=== PATIENT | male | born 1995 | race Caucasian/White ===

== ENCOUNTER 2016-07-27 14:58 | Inpatient (IN) | payer BC ==
[~2016-07-27] VITALS: Ht 172.7 cm; Wt 66.6 kg
[2016-07-27] MEDS ORDERED: ONDANSETRON INJ 2 MG/ML 2 ML VIAL IV PRN (15:30)
[2016-07-27] MEDS ORDERED: MAGNESIUM HYDROXIDE SUSP 30 ML UDC PO PRN (15:30)
[2016-07-27 15:59] VITALS: BP 121/82; PULSE 86; TEMP 36.7; O2SAT 98
[2016-07-27] MEDS ORDERED: PATIENT'S ALLERGY INFO NEEDS ENTERED SCH (16:15)
--- NOTE | 2016-07-27 16:33 | DIAGNOSTIC IMAGING REPORT ---
CHEST 2 VIEWS ROUTINE CLINICAL HISTORY: eval pneumonia COMPARISON STUDY: No previous studies for comparison. FINDINGS: The heart is normal in size. There are bibasal airspace opacities consistent with a bilateral pneumonia. There are small bilateral pleural effusions.[ IMPRESSION: Bilateral lower lobe airspace opacities, consistent with pneumonia. Small bilateral pleural effusions. Electronically signed by: Fernandez Thompson M.D. 07/27/2016 4:31 PM Dictated Date/Time: 07/27/2016 4:30 PM
[2016-07-27] MEDS: SODIUM CHLORIDE 0.9% 1000ML 1,000 ML IV SCH (17:04)
[2016-07-27 17:09] LABS: BASO % 0.2 %; BASO ABS # 0.02 K/uL (0-0.2); COMPLETE YES; EOS % 0.3 %; HEMATOCRIT 39.3 % (42-52); IG% 0.7 %; LYMPH % 10.2 %; LYMPH ABS # 1.09 K/uL (1.2-3.4); MEAN CELL VOLUME 87.9 fL (80-100); MEAN CORPUSCULAR HEMOGLOBIN 30.6 pg (25-34); MEAN CORPUSCULAR HGB CONC 34.9 g/dl (32-36); MEAN PLATELET VOLUME 10.3 fL (7.4-10.4); MONO % 11.4 %; NEUT % 77.2 %; PLATELET COUNT 179 K/uL (130-400); RED BLOOD COUNT 4.47 M/uL (4.7-6.1); WHITE BLOOD COUNT 10.72 K/uL (4.8-10.8)
[2016-07-27 17:24] VITALS: O2SAT 96; Ht 172.7 cm; Wt 66.6 kg
--- NOTE | 2016-07-27 17:33 | HISTORY & PHYSICAL EXAMINATION ---
DATE OF ADMISSION: 07/27/2016 CHIEF COMPLAINT: This is direct admission from [facility] for pneumonia, failing outpatient treatment. HISTORY OF PRESENT ILLNESS: Mr. Landeros is a 21-year-old male who is a college student, typically healthy, only taking some nasal inhalers for allergic rhinitis. The patient has had a 2-week history of a cough which initially just thought it was allergies. The patient sought care with [facility] this week. He was prescribed azithromycin. He took 1 day's worth of it. He reported back for a recheck. Upon recheck at [facility], he had a temperature of 39.3. He was coughing. He was dyspneic, although not hypoxic. He is called and recommended for admission for failing outpatient treatment. PAST MEDICAL HISTORY: Only for allergic rhinitis. He has had no surgeries. He has had no overnight hospital stay. MEDICATIONS: Only Flonase and an additional nasal inhaler, which he cannot recall. SOCIAL HISTORY: The patient drinks alcohol as a typical college student. He smoked marijuana approximately 3-4 weeks ago but had had episode of at least 2 weeks for he was fine since that time. He was visiting his family in [place] and denies any exposure to possible etiologies for canyon fever. FAMILY HISTORY: Unremarkable. Everyone is healthy. REVIEW OF SYSTEMS: Ten systems were reviewed and are negative including no evidence of diarrhea, urinary changes. He has a cough productive of green-yellow sputum and he has been feverish and chilled at home. PHYSICAL EXAMINATION: VITAL SIGNS: Currently his temperature is 37, pulse 71, respirations 16, BP 116/65. GENERAL: He is thin. He is in mild distress. HEENT: PERRL, EOMI. Oropharynx with dry mucous membranes. NECK: Without lymphadenopathy. Trachea is midline. HEART: Regular without murmurs. LUNGS: Have bibasilar rhonchi which exacerbate coughing with deep breaths. ABDOMEN: Normoactive bowel sounds, soft, nontender, nondistended, no organomegaly, no abdominal bruits. EXTREMITIES: Without cyanosis, clubbing or edema. NEUROLOGIC: Awake, alert and appropriate. Cranial nerves II-XII are intact. Equal symmetrical strength and sensation. We have no chest x-ray on file nor do we have labs right now. ASSESSMENT: A 21-year-old male, failing outpatient therapy for pneumonia. PLAN: The patient will be admitted to our facility. He will be placed on levofloxacin daily. Chest x-ray and laboratories are pending as well as blood cultures. He will be hydrated with normal saline. Maintaining his Flomax. DVT prevention is early ambulation.
[2016-07-27 17:39] LABS: BUN/CREATININE RATIO 6.7 (10-20); CALCIUM 8.7 mg/dl (8.5-10.1); CREATININE 1.1 mg/dl (0.60-1.40); POTASSIUM 3.8 mmol/L (3.5-5.1)
[2016-07-27] MEDS: LEVOFLOXACIN / D5W 750 MG in PREMIXED IN D5W 150 ML IV SCH (18:40)
[2016-07-27] MEDS ORDERED: PNEUMOCOCCAL ADMINISTRATION CHARGE ONE (21:00)
[2016-07-27] MEDS ORDERED: PNEUMOCOCCAL POLYSACCHARIDES 25 MCG/0.5 ML VIAL/SYR IM. ONE (21:00)
[2016-07-27] MEDS ORDERED: BENZONATATE 100MG CAP PO PRN (21:45)
[2016-07-27 23:17] VITALS: BP 120/77; PULSE 76; TEMP 37.2; O2SAT 99
[2016-07-28] MEDS ORDERED: NURSING VERBAL MED ORDER ONE
[2016-07-28] MEDS ORDERED: HYDROCODONE/HOMATROPINE SYRUP 5MG/1.5MG 5ML UDP ONE (00:08)
[2016-07-28] MEDS: HYDROCODONE/HOMATROPINE SYRUP 5MG/1.5MG 5ML UDP PO PRN ×5 (00:37→20:22)
[2016-07-28] MEDS: SODIUM CHLORIDE 0.9% 1000ML 1,000 ML IV SCH ×2 (02:25→11:59)
[2016-07-28 08:07] VITALS: BP 125/76; PULSE 88; TEMP 36.9; O2SAT 96
[2016-07-28 08:07] LABS: HEMATOCRIT 37.1 % (42-52); MEAN CORPUSCULAR HEMOGLOBIN 31.4 pg (25-34); MEAN CORPUSCULAR HGB CONC 35.3 g/dl (32-36); MEAN PLATELET VOLUME 10.1 fL (7.4-10.4); PLATELET COUNT 161 K/uL (130-400); RED BLOOD COUNT 4.17 M/uL (4.7-6.1); WHITE BLOOD COUNT 10.23 K/uL (4.8-10.8)
[2016-07-28 08:41] LABS: BUN/CREATININE RATIO 8.7 (10-20); CALCIUM 8.3 mg/dl (8.5-10.1); POTASSIUM 3.8 mmol/L (3.5-5.1)
[2016-07-28] MEDS: FLUTICASONE PROPIONATE NA SPR 16 GM BTL SCH (10:38)
[2016-07-28] MEDS: ACETAMINOPHEN 325 MG TAB PO PRN ×2 (13:01→19:25)
--- NOTE | 2016-07-28 14:41 | Hospitalist Progress Note ---
Hospitalist Progress Note Date of Service Jul 28, 2016. Subjective feeling better but still with significant cough Constitutional: No fever Respiratory: + cough, No shortness of breath Cardiovascular: No chest pain Objective Vital Signs Date Time Temp Pulse Resp B/P Pulse Ox O2 Delivery O2 Flow Rate FiO2 07/28/16 08:07 36.9 88 18 125/76 96 Room Air 07/28/16 08:00 Room Air 07/28/16 00:01 Room Air 07/27/16 23:17 37.2 76 18 120/77 99 Room Air 07/27/16 20:00 Room Air 07/27/16 17:24 96 Room Air 07/27/16 15:59 36.7 86 20 121/82 98 Room Air Physical Exam General Appearance: no apparent distress Respiratory/Chest: no respiratory distress, + pertinent finding (coarse sounds ) Cardiovascular: regular rate, rhythm Neurologic/Psychiatric: alert, oriented x 3 Skin: warm/dry Laboratory Results Last 24 Hours Test 07/27/16 16:46 07/28/16 07:53 White Blood Count 10.72 K/uL 10.23 K/uL Red Blood Count 4.47 M/uL 4.17 M/uL Hemoglobin 13.7 g/dL 13.1 g/dL Hematocrit 39.3 % 37.1 % Mean Corpuscular Volume 87.9 fL 89.0 fL Mean Corpuscular Hemoglobin 30.6 pg 31.4 pg Mean Corpuscular Hemoglobin Concent 34.9 g/dl 35.3 g/dl Platelet Count 179 K/uL 161 K/uL Mean Platelet Volume 10.3 fL 10.1 fL Neutrophils (%) (Auto) 77.2 % Lymphocytes (%) (Auto) 10.2 % Monocytes (%) (Auto) 11.4 % Eosinophils (%) (Auto) 0.3 % Basophils (%) (Auto) 0.2 % Neutrophils # (Auto) 8.28 K/uL Lymphocytes # (Auto) 1.09 K/uL Monocytes # (Auto) 1.22 K/uL Eosinophils # (Auto) 0.03 K/uL Basophils # (Auto) 0.02 K/uL RDW Standard Deviation 40.9 fL 41.5 fL RDW Coefficient of Variation 12.7 % 12.8 % Immature Granulocyte % (Auto) 0.7 % Immature Granulocyte # (Auto) 0.08 K/uL Sodium Level 141 mmol/L 139 mmol/L Potassium Level 3.8 mmol/L 3.8 mmol/L Chloride Level 106 mmol/L 107 mmol/L Carbon Dioxide Level 28 mmol/L 24 mmol/L Anion Gap 7.0 mmol/L 8.0 mmol/L Blood Urea Nitrogen 7 mg/dl 9 mg/dl Creatinine 1.10 mg/dl 1.00 mg/dl Est Creatinine Clear Calc Drug Dose 100.1 ml/min 110.1 ml/min Estimated GFR () 110.6 124.1 Estimated GFR (Non- 95.5 107.1 BUN/Creatinine Ratio 6.7 8.7 Random Glucose 102 mg/dl 97 mg/dl Calcium Level 8.7 mg/dl 8.3 mg/dl Assessment and Plan 21-year-old male, failing outpatient therapy for pneumonia. CAP - Continue IV levaquin, hycodan, blood cultures pending. Allergic rhinitis - continue flonase early ambulation anticipate d/c home in am
[2016-07-28 15:59] VITALS: BP 109/61; PULSE 84; TEMP 37.1; O2SAT 95
[2016-07-28] MEDS: LEVOFLOXACIN / D5W 750 MG in PREMIXED IN D5W 150 ML IV SCH (18:04)
[2016-07-28 19:15] VITALS: TEMP 38.2
[2016-07-28 23:02] VITALS: BP 115/70; PULSE 72; TEMP 37.1; O2SAT 96
[2016-07-29] MEDS: HYDROCODONE/HOMATROPINE SYRUP 5MG/1.5MG 5ML UDP PO PRN ×6 (00:18→21:42)
[2016-07-29] MEDS: SODIUM CHLORIDE 0.9% 1000ML 1,000 ML IV SCH ×3 (00:19→18:44)
[2016-07-29 07:45] VITALS: BP 105/65; PULSE 94; TEMP 37.6; O2SAT 96
[2016-07-29] MEDS: FLUTICASONE PROPIONATE NA SPR 16 GM BTL SCH (08:02)
[2016-07-29] MEDS: ACETAMINOPHEN 325 MG TAB PO PRN ×2 (08:03→15:30)
[2016-07-29 10:28] LABS: BUN/CREATININE RATIO 6.8 (10-20); CALCIUM 8.8 mg/dl (8.5-10.1); POTASSIUM 3.7 mmol/L (3.5-5.1)
--- NOTE | 2016-07-29 13:00 | DIAGNOSTIC IMAGING REPORT ---
CHEST 2 VIEWS ROUTINE CLINICAL HISTORY: Follow-up pneumonia. COMPARISON STUDY: Chest radiograph July 27, 2016. FINDINGS: Bibasilar consolidation has progressed since exam of July 27, 2016. There are suspected small bilateral pleural effusions. There is no pneumothorax. Cardiac size is normal. Mediastinal contours are normal. There is no evidence of pulmonary edema. IMPRESSION: 1. Progression of bilateral lower lobe consolidation suggestive of pneumonia. 2. Small bilateral pleural effusions. Electronically signed by: Segun Alexis M.D. 07/29/2016 12:58 PM Dictated Date/Time: 07/29/2016 12:57 PM
[2016-07-29 13:40] VITALS: TEMP 37.6
[2016-07-29 15:34] VITALS: BP 125/69; PULSE 79; TEMP 37.7; O2SAT 96
[2016-07-29 16:57] VITALS: TEMP 36.7
[2016-07-29] MEDS: LEVOFLOXACIN / D5W 750 MG in PREMIXED IN D5W 150 ML IV SCH (18:00)
--- NOTE | 2016-07-29 21:14 | Hospitalist Progress Note ---
Hospitalist Progress Note Date of Service Jul 29, 2016. Subjective cough worse since am also having fevers now. no shortness of breath. Cardiovascular: + chest pain (hurts on coughing) Abdomen: No pain Objective Vital Signs Date Time Temp Pulse Resp B/P Pulse Ox O2 Delivery O2 Flow Rate FiO2 07/29/16 16:57 36.7 07/29/16 15:34 37.7 79 18 125/69 96 07/29/16 15:30 Room Air 07/29/16 13:40 37.6 07/29/16 08:00 Room Air 07/29/16 07:45 37.6 94 16 105/65 96 Room Air 07/29/16 00:46 Room Air 07/28/16 23:02 37.1 72 18 115/70 96 Room Air Physical Exam General Appearance: no apparent distress Respiratory/Chest: no respiratory distress, + decreased breath sounds (base with coarse sounds) Cardiovascular: regular rate, rhythm Abdomen: normal bowel sounds, non tender, soft Neurologic/Psychiatric: alert, oriented x 3 Laboratory Results Last 24 Hours Test 07/29/16 09:27 Sodium Level 139 mmol/L Potassium Level 3.7 mmol/L Chloride Level 103 mmol/L Carbon Dioxide Level 25 mmol/L Anion Gap 11.0 mmol/L Blood Urea Nitrogen 7 mg/dl Creatinine 1.00 mg/dl Est Creatinine Clear Calc Drug Dose 110.1 ml/min Estimated GFR () 124.1 Estimated GFR (Non- 107.1 BUN/Creatinine Ratio 6.8 Random Glucose 88 mg/dl Calcium Level 8.8 mg/dl Assessment and Plan 21-year-old male, failing outpatient therapy for pneumonia. CAP - Continue IV levaquin, hycodan, blood cultures neg. since cough worse- check CXR - noted worse infiltrate. consulted ID. Allergic rhinitis - continue flonase early ambulation
[2016-07-29 23:10] VITALS: BP 114/73; PULSE 83; TEMP 37.2; O2SAT 96
[2016-07-30] VITALS: O2SAT 96
[2016-07-30] MEDS: HYDROCODONE/HOMATROPINE SYRUP 5MG/1.5MG 5ML UDP PO PRN ×6 (01:54→22:15)
[2016-07-30] MEDS: SODIUM CHLORIDE 0.9% 1000ML 1,000 ML IV SCH ×2 (04:55→13:43)
[2016-07-30 07:40] VITALS: BP 127/79; PULSE 72; TEMP 36.8; O2SAT 96
[2016-07-30] MEDS: FLUTICASONE PROPIONATE NA SPR 16 GM BTL SCH (08:14)
[2016-07-30 08:38] LABS: MEAN CELL VOLUME 87.2 fL (80-100); MEAN CORPUSCULAR HEMOGLOBIN 30.5 pg (25-34); MEAN PLATELET VOLUME 10.6 fL (7.4-10.4); PLATELET COUNT 202 K/uL (130-400); RED BLOOD COUNT 4.36 M/uL (4.7-6.1); WHITE BLOOD COUNT 7.23 K/uL (4.8-10.8)
[2016-07-30 09:01] LABS: BUN/CREATININE RATIO 8.3 (10-20); CALCIUM 8.7 mg/dl (8.5-10.1); CREATININE 0.94 mg/dl (0.60-1.40)
--- NOTE | 2016-07-30 09:20 | Medical Consult ---
Consultation Date of Consultation: Jul 30, 2016. Attending Physician: Destiny Palomo M.D. Reason for Consultation: Pneumonia History of Present Illness 21-year-old male previously healthy except for allergic rhinitis, was in usual state of health until approximately 2 weeks ago when he developed symptoms of respiratory tract infection with congestion, sore throat, fever chills. Apparently, his roommates were also developing similar symptoms. He then developed worsening cough and shortness of breath along with severe chest pain, was seen as an outpatient, eventually had chest x-ray which showed pneumonia, started on azithromycin but failed to improve. He was referred to the emergency room with worsening infiltrates on chest x-ray, persistent chest pain , fever, and shortness of breath. Otherwise he denies any significant travel or exposure history. Had nausea, vomiting, and diarrhea prior to admission, now improved. cultures unrevealing to date. Past Medical/Surgical History Medical Problems: (1) Pneumonia PMH/PSH: allergic rhinitis Family History Noncontributory Social History Smoking Status: Never Smoker Allergies Coded Allergies: POLLEN (Verified Allergy, Unknown, "Seasonal Allergies", 07/27/16) Current Inpatient Medications Current Inpatient Medications Medications (Trade) Dose Ordered Sig/Curtis Route Start Time Stop Time Status Last Admin Dose Admin Acetaminophen (Tylenol Tab) 650 mg Q4H PRN PO 07/27/16 15:30 08/26/16 15:29 07/29/16 15:30 650 MG Magnesium Hydroxide (Milk Of Magnesia Susp) 30 ml Q6H PRN PO 07/27/16 15:30 08/26/16 15:29 Ondansetron HCl 4 mg 4 mg Q6H PRN IV 07/27/16 15:30 08/26/16 15:29 Levofloxacin 750 mg/Prmx 150 ml @ 100 mls/hr DAILY@1800 IV 07/27/16 18:00 08/03/16 17:59 07/29/16 18:00 100 MLS/HR Sodium Chloride (Nss 1000ml) 1,000 ml @ 100 mls/hr Q10H IV 07/27/16 16:30 08/26/16 16:29 07/30/16 04:55 100 MLS/HR Fluticasone Propionate (Flonase Nasal [place]) 2 sprays DAILY NA 07/28/16 08:00 08/27/16 07:59 07/30/16 08:14 2 SPRAYS Hydrocodone Bit/ Homatropine Methylb (Hycodan Syrup) 5-10ML Q4H PRN PO 07/28/16 00:15 08/11/16 00:14 07/30/16 05:48 10 ML Review of Systems Constitutional: + chills, + fatigue, + fever, + weakness Eyes: No problem reported ENT: + nasal symptoms, + sore throat Respiratory: + cough, + dyspnea on exertion, + shortness of breath, + sputum, + wheezing, No hemoptysis Cardiovascular: + chest pain Abdomen: + diarrhea, + nausea, + vomiting Musculoskeletal: + joint pain, + muscle pain Genitourinary - Male: No problem reported Neurologic: No problem reported Psychiatric: No problem reported Endocrine: No problem reported Hematologic / Lymphatic: No problem reported Integumentary: No problem reported Allergic / Immunologic: No problem reported Physical Exam Date Time Temp Pulse Resp B/P Pulse Ox O2 Delivery O2 Flow Rate FiO2 07/30/16 07:40 36.8 72 20 127/79 96 Room Air 07/30/16 00:00 96 Room Air 07/29/16 23:10 37.2 83 18 114/73 96 Room Air 07/29/16 16:57 36.7 07/29/16 15:34 37.7 79 18 125/69 96 07/29/16 15:30 Room Air 07/29/16 13:40 37.6 General Appearance: WD/WN, no apparent distress Head: normocephalic, atraumatic Eyes: normal inspection, EOMI, sclerae normal ENT: normal ENT inspection, hearing grossly normal, pharynx normal Neck: supple, no adenopathy, thyroid normal, trachea midline Respiratory/Chest: chest non-tender, no respiratory distress, no accessory muscle use, + rales Cardiovascular: regular rate, rhythm, no gallop, no murmur Abdomen/GI: normal bowel sounds, non tender, soft, no organomegaly Back: normal inspection, no CVA tenderness Neurologic/Psych: alert, oriented x 3 Skin: normal color, warm/dry, no rash Lymphatic: no adenopathy Laboratory Results RUN DATE: 07/29/16 [facility] PAGE 1 RUN TIME: 737 Specimen Inquiry PATIENT: JUAN MANUEL CANNON LOC: [id number] U # : [id number] AGE/SX: 21/M ROOM: [facility] REG : 07/27/[address]: Destiny Palomo M.D. : 1995 BED: 2 DIS : STATUS: ADM IN TLOC: SPEC #: [id number] MAY: 07/27/16 STATUS: RES REQ #: [id number] RECD: 07/27/[address]: Juan Gordillo M.D. SOURCE: BLOOD ENTR: 07/27/16-[address]: [facility]: ORDERED: BLOOD CULTURE Procedure Result Verified Site BLD CULT Preliminary 07/29/16 NO GROWTH TO DATE. Last 24 Hours Test 07/29/16 09:27 07/30/16 08:05 Sodium Level 139 mmol/L 137 mmol/L Potassium Level 3.7 mmol/L 4.0 mmol/L Chloride Level 103 mmol/L 103 mmol/L Carbon Dioxide Level 25 mmol/L 28 mmol/L Anion Gap 11.0 mmol/L 6.0 mmol/L Blood Urea Nitrogen 7 mg/dl 8 mg/dl Creatinine 1.00 mg/dl 0.94 mg/dl Est Creatinine Clear Calc Drug Dose 110.1 ml/min 117.1 ml/min Estimated GFR () 124.1 133.8 Estimated GFR (Non- 107.1 115.4 BUN/Creatinine Ratio 6.8 8.3 Random Glucose 88 mg/dl 83 mg/dl Calcium Level 8.8 mg/dl 8.7 mg/dl White Blood Count 7.23 K/uL Red Blood Count 4.36 M/uL Hemoglobin 13.3 g/dL Hematocrit 38.0 % Mean Corpuscular Volume 87.2 fL Mean Corpuscular Hemoglobin 30.5 pg Mean Corpuscular Hemoglobin Concent 35.0 g/dl RDW Standard Deviation 40.0 fL RDW Coefficient of Variation 12.4 % Platelet Count 202 K/uL Mean Platelet Volume 10.6 fL Patient Name: JUAN MANUEL CANNON Unit Number: [id number] Dictated: 07/29/16 1257 Transcribed: 07/29/16 1257 JA Printed Date/Time: [~ rep prt dt]/[~ rep prt tm] [~ rep ct labl] - [~ rep ct ivnm] [facility] [place] [address] Dictated: 07/29/16 1257 Transcribed: 07/29/16 1257 JA Printed Date/Time: [~ rep prt dt]/[~ rep prt tm] [~ rep ct labl] - [~ rep ct ivnm] CHEST 2 VIEWS ROUTINE CLINICAL HISTORY: Follow-up pneumonia. COMPARISON STUDY: Chest radiograph July 27, 2016. FINDINGS: Bibasilar consolidation has progressed since exam of July 27, 2016. There are suspected small bilateral pleural effusions. There is no pneumothorax. Cardiac size is normal. Mediastinal contours are normal. There is no evidence of pulmonary edema. IMPRESSION: 1. Progression of bilateral lower lobe consolidation suggestive of pneumonia. 2. Small bilateral pleural effusions. Electronically signed by: Segun Alexis M.D. 07/29/2016 12:58 PM Dictated Date/Time: 07/29/2016 12:57 PM The status of this report is Signed. Draft = Not yet reviewed or approved by Radiologist. Signed = Reviewed and approved by Radiologist. <AttendingPhy>Destiny Palomo M.D.</AttendingPhy> <FamilyPhy>[facility]</FamilyPhy> <PrimaryPhy>[facility]</PrimaryPhy> < UnitNumber>[id number]</UnitNumber> <VisitNumber>[id number]</VisitNumber> < PatientName>JUAN MANUEL CANNON</PatientName> <DateOfBirth>1995</ DateOfBirth> <Location>C.MS4[facility]</Location> <ServiceDate></ServiceDate> <MNE>ESINDI </MNE> <OrderingPhy>Destiny Palomo M.D.</OrderingPhy> <OrderingPhyMNE>f rep ord dr holley</OrderingPhyMNE> <DictatingPhyMNE>f rep dict dr holley</DictatingPhyMNE> < CCListMNE>f rep ct daynae</CCListMNE> <AdmittingPhyMNE>f pt admit dr holley</ AdmittingPhyMNE> <AttendingPhyMNE>f pt attend dr holley</AttendingPhyMNE> <ConsultingPhyMNE>f pt consult dr holley</ConsultingPhyMNE> <FamilyPhyMNE>f pt fam dr holley</FamilyPhyMNE> <OtherPhyMNE>f pt other dr holley</OtherPhyMNE> < PrimaryPhyMNE>f pt prim care dr holley</PrimaryPhyMNE> <ReferringPhyMNE>f pt referring dr holley</ReferringPhyMNE> Assessment & Plan Bilateral pneumonia after what sounds like acute influenzal illness. Appears to be slowly improving on levofloxacin, and could transition to oral RX. Have ordered MRSA screen and mycoplasma IGM and cold agglutinins. Will follow.
--- NOTE | 2016-07-30 11:33 | Family Medicine Progress Note ---
Progress Note Date of Service Jul 30, 2016. Subjective Pt evaluation today including: conversation w/ patient, conversation w/ family Pain: with coughing Voiding: no voiding problems Reports feeling better Shortness of breath has improved Has some chest pain with coughing Father wonders about going home and possibly being quarantined ? Constitutional: No chills, No fever, No sweats Eyes: No worsening of vision Respiratory: + cough, + sputum, No dyspnea on exertion, No shortness of breath, No wheezing Cardiovascular: + chest pain Abdomen: No constipation, No diarrhea, No nausea, No pain, No vomiting Musculoskeletal: No joint pain, No muscle pain Male : No dysuria, No urinary frequency Objective Physical Exam General Appearance: no apparent distress Eyes: normal inspection ENT: hearing grossly normal Neck: supple, no adenopathy, thyroid normal Respiratory/Chest: no respiratory distress, no accessory muscle use, + decreased breath sounds, + rhonchi Cardiovascular: regular rate, rhythm, no edema, no murmur Abdomen: normal bowel sounds, non tender, soft Extremities: non-tender, no pedal edema, no calf tenderness Neurologic/Psychiatric: alert, normal mood/affect Assessment and Plan This is a 21 y/o M who was admitted with bacterial Pneumonia after a possible influenza. He has been afebrile x 20 hrs and hemodynamically stable. Pneumonia: Clinically improving Transition to PO Levaquin mycoplasma IgM pending No supplemental O2 requirement anticipate D/C AM Reviewed: Pt Seen/Exam by Me History Resident Physician Supervision Note: I interviewed and examined the patient. Discussed with Dr. Marin and agree with findings and plan as documented in the note. Any exceptions or clarifications are listed here: Patient reports feeling better, he and his father reports he has severe coughing spells when the hydrocodone cough syrup is wearing off. He does have a history of seasonal allergies but has never been diagnosed with asthma in the past. Patient is most worried about being able to sleep once he leaves the hospital as the coughing keeps him up if he doesn't get the hydrocodone cough syrup. Seen by ID today and recommended to continue on the Levaquin and check for mycoplasma. Vitals reviewed No acute distress Regular rate and rhythm no murmurs gallops or rubs Lungs with mild crackles at left base, otherwise clear to auscultation bilaterally, no wheezes crackles or rhonchi Skin no rashes Extremities no edema 21-year-old male with bilateral lower lobe pneumonia, possibly atypical pneumonia, probable post-influenza pneumonia. Mycoplasma pending, nothing going on blood cultures, clinically much improved despite the fact the chest x- ray looks worse. I suspect he was dehydrated and chest x-ray is now fluffing out more that he has been hydrated. Stop IV fluids today. Continue Levaquin for total of 10 day course. Recommend repeat chest x-ray in 4-6 weeks as an outpatient to ensure the infiltrates are cleared. Given history of seasonal allergies, he could have some reactive airway disease. Will start albuterol nebulizers today and here he has a pro-air inhaler he continues as an outpatient that he was prescribed as an outpatient the other day. Expect discharge home tomorrow. DVT prophylaxis-he is quite ambulatory, encouraged him to continue this-he is allowed to walk outside with his dad today Documented By: Lili Lopez
[2016-07-30] MEDS ORDERED: NURSING VERBAL MED ORDER ONE ×2 (15:15→16:15)
[2016-07-30] MEDS ORDERED: ALBUTEROL 0.083% NEBU SOLN 3 ML VIAL INH PRN (15:30)
[2016-07-30 15:47] VITALS: BP 118/76; PULSE 85; TEMP 36.9; O2SAT 95
[2016-07-30] MEDS: LEVOFLOXACIN 750 MG TAB PO SCH (16:29)
[2016-07-30 19:12] VITALS: PULSE 71; O2SAT 98
[2016-07-30 23:13] VITALS: BP 146/76; PULSE 87; TEMP 37; O2SAT 96
[2016-07-31] MEDS: ACETAMINOPHEN 325 MG TAB PO PRN (00:28)
[2016-07-31] MEDS: HYDROCODONE/HOMATROPINE SYRUP 5MG/1.5MG 5ML UDP PO PRN ×2 (02:24→06:05)
[2016-07-31] MEDS ORDERED: GUAIFENESIN 600 MG TABCR PO ONE (05:01)
[2016-07-31 07:47] VITALS: BP 126/65; PULSE 64; TEMP 36.4; O2SAT 98
[2016-07-31] MEDS ORDERED: BENZONATATE 100MG CAP PO SCH (08:00)
[2016-07-31] MEDS: FLUTICASONE PROPIONATE NA SPR 16 GM BTL SCH (08:23)
[2016-07-31 08:36] LABS: BUN/CREATININE RATIO 13.1 (10-20); CALCIUM 9.5 mg/dl (8.5-10.1); CREATININE 0.95 mg/dl (0.60-1.40); POTASSIUM 4.4 mmol/L (3.5-5.1)
[2016-07-31] MEDS ORDERED: BENZ100C7 PO (08:43)
[2016-07-31] MEDS ORDERED: FLNIN (08:43)
[2016-07-31] MEDS ORDERED: GFNSR600 PO (08:43)
[2016-07-31] MEDS ORDERED: LVQ750 PO (08:43)
--- NOTE | 2016-07-31 08:53 | Discharge Instructions ---
Discharge Instructions Date of Service Jul 31, 2016. Admission Reason for Admission: Pneumonia Discharge Discharge Diagnosis / Problem: Pneumonia Discharge Goals Goal(s): Decrease discomfort, Improve function, Therapeutic intervention, Prevent Disease Progression Activity Recommendations Activity Limitations: resume your previous activity Lifting Limitations: gradually increase as tolerated Exercise/Sports Limitations: as tolerated May Resume Sexual Activity: when tolerated Shower/Bathe: no limitations Driving or Machine Use: no limitations . Instructions / Follow-Up Instructions / Follow-Up Henok Sparrow were admitted to the hospital due to a bacterial infection in your lungs called pneumonia. You were treated with IV antibiotics and then transitioned to Oral antibiotics. You have 6 days left of your antibiotic. Your symptoms have improved. Cough may persist for 2-3 weeks. You may take Tessalon Pearles or Mucinex to help. After a pneumonia, it may take several weeks for you to get back to your normal activity levels. Gradually increase your activity levels as tolerated. We recommend close follow up in 3-5 days with your PCP in [place]. If you are unable to do so, please make an appointment with the [facility] at If you experience further symptoms, shortness of breath, fevers > 101 or other medical concerns, please call your PCP or go to the ER. Thank you. Current Hospital Diet Patient's current hospital diet: Regular Diet Discharge Diet Recommended Diet: Regular Diet Pending Studies Studies pending at discharge: yes List of pending studies: Mycoplasma IgM Cold aggluttinins Medical Emergencies . Who to Call and When: Medical Emergencies: If at any time you feel your situation is an emergency, please call 911 immediately. . Non-Emergent Contact Non-Emergency issues call your: Primary Care Provider . . "Provider Documentation" section prepared by Niurka Pandya. VTE Core Measure Inpt VTE Proph given/why not?: Treatment not indicated
[2016-07-31] MEDS ORDERED: VNTHFA/IN INH (09:33)
[2016-07-31] MEDS ORDERED: HYCUDL5 PO (09:33)
--- NOTE | 2016-07-31 09:41 | Infectious Disease Progress Nt ---
Progress Note Date of Service Jul 31, 2016. Subjective Pt evaluation today including: conversation w/ patient, physical exam, chart review, lab review, review of studies, conversation w/ consultants intern, review of inpatient medication list Feeling better. Cough about same. No fever. Tolerating levofloxacin. All Other Systems: Reviewed and Negative Medications Current Inpatient Medications Medications (Trade) Dose Ordered Sig/Curtis Route Start Time Stop Time Status Last Admin Dose Admin Acetaminophen (Tylenol Tab) 650 mg Q4H PRN PO 07/27/16 15:30 08/26/16 15:29 07/31/16 00:28 650 MG Magnesium Hydroxide (Milk Of Magnesia Susp) 30 ml Q6H PRN PO 07/27/16 15:30 08/26/16 15:29 Ondansetron HCl (Zofran Inj) 4 mg Q6H PRN IV 07/27/16 15:30 08/26/16 15:29 Fluticasone Propionate (Flonase Nasal [place]) 2 sprays DAILY NA 07/28/16 08:00 08/27/16 07:59 07/31/16 08:23 2 SPRAYS Hydrocodone Bit/ Homatropine Methylb (Hycodan Syrup) 5-10ML Q4H PRN PO 07/28/16 00:15 08/11/16 00:14 07/31/16 06:05 10 ML Levofloxacin (Levaquin Tab) 750 mg DAILY@11 PO 07/30/16 16:00 08/03/16 10:59 07/30/16 16:29 750 MG Albuterol Sulfate (Ventolin 0.083% 2.5MG/3ML Neb) 2.5 mg Q4H PRN INH 07/30/16 15:30 08/29/16 15:29 07/30/16 19:11 2.5 MG Guaifenesin (Mucinex Contr Rel Tab) 600 mg Q12 PO 07/31/16 21:00 08/30/16 20:59 Benzonatate (Tessalon Perles Cap) 100 mg TID PO 07/31/16 08:00 08/30/16 07:59 Objective Vital Signs Date Time Temp Pulse Resp B/P Pulse Ox O2 Delivery O2 Flow Rate FiO2 07/31/16 08:00 Room Air 07/31/16 07:47 36.4 64 18 126/65 98 Room Air 07/31/16 00:00 Room Air 07/30/16 23:13 37.0 87 18 146/76 96 Room Air 07/30/16 20:00 Room Air 07/30/16 19:12 71 14 98 Room Air 07/30/16 16:00 Room Air 07/30/16 15:47 36.9 85 18 118/76 95 Room Air Physical Exam General Appearance: WD/WN, no apparent distress Eyes: normal inspection, EOMI, sclerae normal ENT: normal ENT inspection, pharynx normal Neck: supple, no adenopathy, trachea midline Respiratory/Chest: chest non-tender, no respiratory distress, + rales Cardiovascular: regular rate, rhythm, no gallop, no murmur Abdomen: normal bowel sounds, non tender, soft, no organomegaly Extremities: non-tender, no calf tenderness Neurologic/Psychiatric: alert, oriented x 3 Skin: normal color, warm/dry, no rash Lymphatic: no adenopathy Laboratory Results Last 24 Hours Test 07/30/16 10:03 07/30/16 11:54 07/31/16 07:20 Sodium Level 140 mmol/L Potassium Level 4.4 mmol/L Chloride Level 105 mmol/L Carbon Dioxide Level 26 mmol/L Anion Gap 9.0 mmol/L Blood Urea Nitrogen 12 mg/dl Creatinine 0.95 mg/dl Est Creatinine Clear Calc Drug Dose 115.9 ml/min Estimated GFR () 132.1 Estimated GFR (Non- 114.0 BUN/Creatinine Ratio 13.1 Random Glucose 83 mg/dl Calcium Level 9.5 mg/dl Assessment and Plan Bilateral pneumonia after what sounds like acute influenzal illness. Appears to improving on levofloxacin. Agree patient can be discharged on oral levofloxacin to complete 10 days Rx.
[2016-07-31 09:42] VITALS: BP 126/65; PULSE 64; TEMP 36.4; O2SAT 98
[2016-07-31] MEDS: LEVOFLOXACIN 750 MG TAB PO SCH (10:58)
[2016-07-31] MEDS ORDERED: LEVOFLOXACIN 750 MG TAB PO SCH (11:00)
--- NOTE | 2016-07-31 18:00 | Discharge Summary ---
Discharge Summary Date of Service Jul 31, 2016. (Niurka Marin MD) Discharge Summary Admission Date: Jul 27, 2016 at 15:25 Discharge Date: Jul 31, 2016 Discharge Disposition: Home Principal Diagnosis: Bilateral Pneumonia Procedures: CLINICAL HISTORY: eval pneumonia COMPARISON STUDY: No previous studies for comparison. FINDINGS: The heart is normal in size. There are bibasal airspace opacities consistent with a bilateral pneumonia. There are small bilateral pleural effusions.[ IMPRESSION: Bilateral lower lobe airspace opacities, consistent with pneumonia. Small bilateral pleural effusions. Consultations: Infectious disease (Niurka Marin MD) Medication Reconciliation New Medications: Albuterol Hfa (Ventolin Hfa) 200 Puffs/94231 Mcg Aers 2 PUFFS INH Q4H PRN for Cough, #1 INHALER Benzonatate (Benzonatate) 100 Mg Cap 100 MG PO TID for 7 Days, CAP Fluticasone Propionate (Fluticasone Propionate) 50 Mcg/Act Spr 2 SPRAYS NA DAILY for 7 Days Guaifenesin Ext Rel (Mucinex Ext Rel) 600 Mg Tabcr 600 MG PO Q12 for 10 Days Hydrocodone/Homatropine (Hydromet 5-1.5 mg/5Ml) 5 Ml/Cup Syrp 5-10 ML PO Q4H PRN for Cough, #240 ML 0 Refills Levofloxacin (Levofloxacin) 750 Mg Tab 750 MG PO DAILY@11 for 6 Days, #6 TAB Discharge Exam This is a 21 y/o M who presented with worsening shortness of breath. He was seen at [facility] and diagnosed with atypical pneumonia; treated with Zpac and Albuterol. However, his symptoms persisted a day after initiation of treatment so he was sent to the ED. Chest X-ray revealed bilateral Pneumonia. He was started on IV levaquin. He did not have an oxygen requirement. He continued to improve though he had a persistent cough. His cough was treated with Hycodan and mucinex. He was transitioned to PO levaquin for a total of 10 days of treatment. Infectious disease was consulted and they agreed with Levaquin. Instructions were given on follow up. He was otherwise stable for discharge. Review of Systems: Constitutional: No chills, No fatigue, No fever, No sweats, No weakness Eyes: No worsening of vision ENT: + nasal symptoms, No hearing loss, No unusual epistaxis Respiratory: + cough, + sputum, No dyspnea at rest, No dyspnea on exertion, No shortness of breath, No wheezing Cardiovascular: No chest pain Abdomen: No diarrhea, No nausea, No pain, No vomiting Genitourinary - Male: No dysuria, No hematuria, No urinary frequency Physical Exam: General Appearance: no apparent distress Eyes: PERRL, EOMI ENT: hearing grossly normal Neck: no adenopathy, thyroid normal Respiratory/Chest: lungs clear, normal breath sounds, no respiratory distress, no accessory muscle use Cardiovascular: regular rate, rhythm, no edema, no murmur, normal peripheral pulses Abdomen / GI: normal bowel sounds, non tender, soft Extremities: no calf tenderness, no pedal edema Neurologic/Psychiatric: no motor/sensory deficits, alert, normal mood/affect (Niurka Marin MD) Hospital Course Total Time Spent: Less than 30 minutes This includes examination of the patient, discharge planning, medication reconciliation, and communication with other providers. (Niurka Marin MD) Total Time Spent: Greater than 30 minutes (Lili Lopez MD) Discharge Instructions Please refer to the electronic Patient Visit Report (Discharge Instructions) for additional information. (Niurka Marin MD) Additional Copies To [facility] Reviewed: Pt Seen/Exam by Me (Lili Lopez MD) History Resident Physician Supervision Note: I interviewed and examined the patient. Discussed with Dr. Gore and agree with findings and plan as documented in the note. Any exceptions or clarifications are listed here: Patient was feeling much better on the day of discharge. He felt that the albuterol nebulizer did help somewhat with his cough. He is afebrile, blood cultures with no growth. His mycoplasma IgM was negative and cold agglutinins were still pending at time of discharge. Vitals reviewed No acute distress Regular rate and rhythm, no murmurs gallops or rubs Lungs with slightly decreased breath sounds at the bases, otherwise clear to auscultation bilaterally, no wheezes crackles or rhonchi Abdomen positive bowel sounds soft nontender nondistended Skin no rashes Extremities no edema, calves soft and nontender Patient is a 21-year-old male with a history of seasonal allergies, here with community-acquired pneumonia and reactive airway disease. Much improved on Levaquin. He will finish a ten-day course of Levaquin. His cold agglutinin test should be followed up on by his primary care physician. She continue pro-air inhaler every 4 hours for several days and then go to 2 puffs when necessary for cough after that. His recommended follow-up chest x-ray in 3-4 weeks to ensure complete resolution of his pneumonia and small pleural effusions. Documented By: Lili Lopez (Lili Lopez MD)
[2016-07-31] MEDS ORDERED: GUAIFENESIN 600 MG TABCR PO SCH (21:00)
== END 2016-07-31 11:40 | disposition home or self-care (01) | DRG 195 ==
LOC: C.MS4W 14:58 → UNDOADMIN 14:58 → C.MS4W 15:25
PROVIDERS: ADMIT Internal Medicine; ATTEND Family Medicine
DX: J15.9 Unspecified bacterial pneumonia (principal); J30.9 Allergic rhinitis, unspecified; Z79.899 Other long term (current) drug therapy; Z79.51 Long term (current) use of inhaled steroids

== ENCOUNTER 2017-05-10 02:13 | Emergency (ER) | payer BC ==
[~2017-05-10 02:13] MED LIST: BENZ100C7 PO; FLNIN; GFNSR600 PO; HYCUDL5 PO; LVQ750 PO
[2017-05-10 02:31] VITALS: TEMP 36.5
[2017-05-10 03:27] LABS: BASO % 0.1 %; BASO ABS # 0.01 K/uL (0-0.2); EOS % 1.3 %; EOS ABS # 0.11 K/uL (0-0.5); HEMATOCRIT 43.8 % (42-52); HEMOGLOBIN 15.8 g/dL (14.0-18.0); IG# 0.02 K/uL (0.00-0.02); LYMPH % 33.3 %; LYMPH ABS # 2.91 K/uL (1.2-3.4); MEAN CELL VOLUME 88.3 fL (80-100); MEAN CORPUSCULAR HEMOGLOBIN 31.9 pg (25-34); MEAN CORPUSCULAR HGB CONC 36.1 g/dl (32-36); MEAN PLATELET VOLUME 10.5 fL (7.4-10.4); MONO % 5.8 %; MONO ABS # 0.51 K/uL (0.11-0.59); NEUT % 59.3 %; NEUT ABS # 5.17 K/uL (1.4-6.5); PLATELET COUNT 178 K/uL (130-400); RED CELL DISTRIBUTION WIDTH CV 12.4 % (11.5-14.5); RED CELL DISTRIBUTION WIDTH SD 39.5 fL (36.4-46.3); WHITE BLOOD COUNT 8.73 K/uL (4.8-10.8)
[2017-05-10 04:02] LABS: ALBUMIN 3.8 gm/dl (3.4-5.0); ALT/SGPT 22 U/L (12-78); AST/SGOT 16 U/L (15-37); BLOOD UREA NITROGEN 10 mg/dl (7-18); CALCIUM 8.1 mg/dl (8.5-10.1); CARBON DIOXIDE 25 mmol/L (21-32); CREATININE 1.03 mg/dl (0.60-1.40); GLUCOSE 95 mg/dl (70-99); POTASSIUM 3.4 mmol/L (3.5-5.1); SODIUM 139 mmol/L (136-145)
[2017-05-10 04:05] LABS: ALKALINE PHOSPHATASE 90 U/L (45-117)
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
[2017-05-10] MEDS ORDERED: AMOX875T PO (11:40)
[2017-05-10 11:58] VITALS: BP 125/68; PULSE 102; O2SAT 98
== END 2017-05-10 12:05 | disposition home or self-care (01) ==
LOC: EDBD 02:13 → C.EDA 02:14
DX: S02.92XA Unspecified fracture of facial bones, initial encounter for closed fracture (principal); Y04.0XXA Assault by unarmed brawl or fight, initial encounter; Y92.89 Other specified places as the place of occurrence of the external cause; T51.0X1A Toxic effect of ethanol, accidental (unintentional), initial encounter

== ENCOUNTER 2017-05-14 23:31 | Emergency (ER) | payer BC ==
[~2017-05-14] VITALS: Ht 175.3 cm; Wt 70.2 kg
[~2017-05-14 23:31] MED LIST changes: +AMOX875T PO; -BENZ100C7 PO; -FLNIN; -GFNSR600 PO; -HYCUDL5 PO; -LVQ750 PO
[2017-05-14 23:38] VITALS: Ht 175.3 cm; Wt 70.2 kg
[2017-05-14] MEDS ORDERED: GUAI1TAB69 PO (23:43)
[2017-05-14] MEDS ORDERED: ACETAMINOPHEN 500 MG TAB PO STA (23:48)
[2017-05-14] MEDS ORDERED: SODIUM CHLORIDE 0.9% 1000ML 1,000 ML IV STA (23:48)
[2017-05-14] MEDS ORDERED: ALBUT/IPRATROP 3MG/0.5MG NEB 3 ML VIAL INH STA (23:48)
[2017-05-14] MEDS ORDERED: KETOROLAC TROMETHAMINE 30 MG/ML VIAL IV STA (23:48)
[2017-05-15 00:19] LABS: BASO % 0.2 %; BASO ABS # 0.01 K/uL (0-0.2); EOS % 0.2 %; EOS ABS # 0.01 K/uL (0-0.5); HEMATOCRIT 43.8 % (42-52); HEMOGLOBIN 15.5 g/dL (14.0-18.0); IG# 0.01 K/uL (0.00-0.02); LYMPH % 7.9 %; LYMPH ABS # 0.45 K/uL (1.2-3.4); MEAN CELL VOLUME 89.8 fL (80-100); MEAN CORPUSCULAR HEMOGLOBIN 31.8 pg (25-34); MEAN CORPUSCULAR HGB CONC 35.4 g/dl (32-36); MEAN PLATELET VOLUME 10.9 fL (7.4-10.4); MONO % 5.8 %; MONO ABS # 0.33 K/uL (0.11-0.59); NEUT % 85.7 %; NEUT ABS # 4.92 K/uL (1.4-6.5); PLATELET COUNT 126 K/uL (130-400); RED CELL DISTRIBUTION WIDTH CV 12.8 % (11.5-14.5); RED CELL DISTRIBUTION WIDTH SD 41.4 fL (36.4-46.3); WHITE BLOOD COUNT 5.73 K/uL (4.8-10.8)
[2017-05-15 00:56] LABS: INFLUENZA B ANTIGEN Neg for Influ B (NEG)
[2017-05-15 00:58] LABS: CALCIUM 9.1 mg/dl (8.5-10.1); CREATININE 1.09 mg/dl (0.60-1.40); POTASSIUM 3.6 mmol/L (3.5-5.1)
[2017-05-15] MEDS ORDERED: OSELTAMIVIR PHOSPHATE 75 MG CAP PO STA (01:11)
[2017-05-15] MEDS ORDERED: HYDROCODONE/HOMATROPINE SYRUP 5MG/1.5MG 5ML UDP PO STA (01:11)
[2017-05-15] MEDS ORDERED: OSEL75CA23 PO (01:32)
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
[2017-05-15] MEDS ORDERED: HYCODAN 60ML BOTTLE HOMEPACK PO ONE (01:45)
[2017-05-15 01:49] VITALS: BP 144/67; PULSE 101; TEMP 37; O2SAT 98
--- NOTE | 2017-05-15 07:16 | DIAGNOSTIC IMAGING REPORT ---
CHEST ONE VIEW PORTABLE HISTORY: Cough, Fevers, CHills COMPARISON: Chest 07/29/2016. FINDINGS: The lungs are clear. Cardiac silhouette is normal in size. No pleural effusions. No pneumothorax. IMPRESSION: No acute process. Electronically signed by: Stewart Brunson M.D. 05/15/2017 7:15 AM Dictated Date/Time: 05/15/2017 7:14 AM
== END 2017-05-15 01:55 | disposition home or self-care (01) ==
LOC: C.EDB 23:34
DX: J11.1 Influenza due to unidentified influenza virus with other respiratory manifestations (principal); F17.200 Nicotine dependence, unspecified, uncomplicated